=== PATIENT | female | born 1950 | race Caucasian/White ===

== ENCOUNTER → 2017-10-22 | Outpatient (CLI) | payer MEDICARE, OTHER ==
[2017-10-22 16:10] LABS: PLATELET COUNT, AUTOMATED 300 K/uL (150-450)
--- NOTE | 2017-10-22 16:18 | EKG ---
FACILITY: [facility] - [place], [place] PATIENT NAME: ALONDRA BRADLEY : [id number] MR: [id number] V: [id number] EXAM DATE: ORDERING PHYSICIAN: SEDA LINDSAY TECHNOLOGIST: LAW Test Reason : HEART PALPITATIONS Blood Pressure : / mmHG Vent. Rate : 057 BPM Atrial Rate : 057 BPM P-R Int : 142 ms QRS Dur : 086 ms QT Int : 440 ms P-R-T Axes : 061 012 046 degrees QTc Int : 428 ms Sinus bradycardia Otherwise normal ECG No previous ECGs available Referred By: NEFTALI Confirmed By:
== END ==
LOC: LAB 15:28
PROVIDERS: ATTEND Nurse Practitioner Primary Care
DX: R00.2 Palpitations (principal)
CPT/HCPCS: 36415; 82040; 82247; 82310; 82374; 82435; 82565; 82947; 84075; 84132; 84155; 84295; 84443; 84450; 84460; 84520; 85025

== ENCOUNTER 2018-07-30 21:09 | Emergency (ER) | payer MEDICARE, OTHER ==
--- NOTE | 2018-07-30 21:12 | ER Report ---
History and Physical Time Seen By MD: 21:11 HPI/ROS CHIEF COMPLAINT: Chest tightness, palpitations HISTORY OF PRESENT ILLNESS: 68-year-old female presents ambulatory to the ER complaining of chest tightness and palpitations. She notes a paresthesia sensation to the side of her neck which spread to her shoulders. She notes no diaphoresis, nausea or shortness of breath with her symptoms. Patient began to have palpitations and tachycardia. Patient denies recent illness or leg swelling. Patient denies other past medical problems. She does have a history of a primary care visit that suggested she had similar episodes which were thought related to anxiety. Patient notes she had 3 episodes throughout the day. The last one the worst only lasting a few minutes. They have all resolved spontaneously. REVIEW OF SYSTEMS: Respiratory: No cough, no dyspnea. Cardiovascular: As above Gastrointestinal: No vomiting, no abdominal pain. Musculoskeletal: No back pain. Allergies: Coded Allergies: Penicillins (Verified Allergy, Mild, as a baby almost , 05/20/17) Sulfa (Sulfonamide Antibiotics) (Verified Allergy, Mild, abd cramping, 05/20/17) Home Meds No Active Prescriptions or Reported Meds Past Medical/Surgical History Past Medical History Gastrointestinal: Reports hx of: GERD Past Surgical History Gynecologic: Reports hx of: tubal ligation Reviewed Nurses Notes: Yes Old Medical Records Reviewed: Yes Constitutional Vital Sign - Last 24 Hours 07/30/18 07/30/18 07/30/18 07/30/18 21:13 21:14 21:30 21:39 Temp 98.4 Pulse 73 70 Resp 18 10 B/P (MAP) 154/77 154/77 (102) 157/77 (103) Pulse Ox 95 95 O2 Delivery Room Air 07/30/18 07/30/18 07/30/18 22:00 22:05 22:30 Pulse 69 Resp 13 B/P (MAP) 142/73 (96) 125/75 (92) Pulse Ox 92 Physical Exam General Appearance: The patient is alert, has no immediate need for airway protection and no current signs of toxicity. Vital signs stable, afebrile, pulse ox normal HEENT: Pupils equal and round no injection. Oropharynx without redness or exudate, mucous. Membranes are moist Respiratory: Chest is non tender, lungs are clear to auscultation. No chest wall tenderness Cardiac: regular rate and rhythm, no murmur Gastrointestinal: Abdomen is soft and non tender, no masses, bowel sounds normal. Musculoskeletal: Neck: Neck is supple and non tender. Extremities have full range of motion and are non tender. Skin: No rashes or lesions. DIFFERENTIAL DIAGNOSIS: After history and physical exam differential diagnosis was considered for chest pain including but not limited to myocardial ischemia, pericarditis pulmonary embolus, chest wall pain, pleural inflammation and pulmo nary infectious causes. Medical Decision Making Data Points Result Diagram: 07/30/18211907/30/182119 Laboratory Hematology Test 07/30/18 21:20 07/30/18 21:50 Red Blood Count 4.37 M/uL (4.17-5.56) Mean Corpuscular Volume 93.0 fL (80.0-96.0) Mean Corpuscular Hemoglobin 31.5 pg (26.0-33.0) Mean Corpuscular Hemoglobin Concent 33.8 g/dL (32.0-36.0) Red Cell Distribution Width 12.7 % (11.5-14.5) Mean Platelet Volume 7.3 fL (7.2-11.1) Neutrophils (%) (Auto) 48.5 % (39.4-72.5) Lymphocytes (%) (Auto) 38.1 % (17.6-49.6) Monocytes (%) (Auto) 10.1 % (4.1-12.4) Eosinophils (%) (Auto) 2.5 % (0.4-6.7) Basophils (%) (Auto) 0.8 % (0.3-1.4) Nucleated RBC Relative Count (auto) 0.0 /100WBC Neutrophils # (Auto) 4.3 K/uL (2.0-7.4) Lymphocytes # (Auto) 3.4 K/uL (1.3-3.6) Monocytes # (Auto) 0.9 K/uL (0.3-1.0) Eosinophils # (Auto) 0.2 K/uL (0.0-0.5) Basophils # (Auto) 0.1 K/uL (0.0-0.1) Nucleated RBC Absolute Count (auto) 0.00 K/uL Sodium Level 136 mmol/L (137-145) Potassium Level 3.4 mmol/L (3.5-5.0) Chloride Level 102 mmol/L (98-107) Carbon Dioxide Level 26 mmol/L (22-31) Blood Urea Nitrogen 23 mg/dl (7-18) Creatinine 1.20 mg/dl (0.52-1.04) Glomerular Filtration Rate Calc 44.9 Random Glucose 93 mg/dl (75-110) Calcium Level 9.5 mg/dl (8.4-10.2) Total Bilirubin 0.1 mg/dl (0.2-1.3) Aspartate Amino Transf (AST/SGOT) 33 U/L (0-35) Alanine Aminotransferase (ALT/SGPT) 27 U/L (0-56) Alkaline Phosphatase 90 U/L (0-126) Troponin I < 0.012 ng/ml B-Type Natriuretic Peptide 8 pg/ml (0-100) Total Protein 8.2 g/dl (6.3-8.2) Albumin 5.0 g/dl (3.5-5.0) Amylase Level 72 U/L (0-110) Lipase 226 U/L (23-300) Urine Color Straw Urine Clarity Clear Urine pH 6.0 pH (4.8-9.5) Urine Specific [place] 1.009 Urine Protein Negative mg/dL (NEGATIVE) Urine Glucose (UA) Negative mg/dL (NEGATIVE) Urine Ketones Negative mg/dL (NEGATIVE) Urine Blood Negative (NEGATIVE) Urine Nitrite Negative (NEGATIVE) Urine Bilirubin Negative (NEGATIVE) Urine Urobilinogen Negative mg/dL (0.2-1.9) Urine Leukocyte Esterase Negative (NEGATIVE) Urine RBC 1 /HPF (0-2/HPF) Urine WBC 1 /HPF (0-5/HPF) Urine Squamous Epithelial Cells None /LPF (</=FEW) Urine Bacteria Few /HPF (NONE-FEW) Urine Mucus None /HPF (NONE-FEW) Chemistry Test 07/30/18 21:20 07/30/18 21:50 White Blood Count 8.9 k/uL (4.5-11.0) Red Blood Count 4.37 M/uL (4.17-5.56) Hemoglobin 13.7 g/dL (12.0-16.0) Hematocrit 40.6 % (34.0-47.0) Mean Corpuscular Volume 93.0 fL (80.0-96.0) Mean Corpuscular Hemoglobin 31.5 pg (26.0-33.0) Mean Corpuscular Hemoglobin Concent 33.8 g/dL (32.0-36.0) Red Cell Distribution Width 12.7 % (11.5-14.5) Platelet Count 301 K/uL (150-450) Mean Platelet Volume 7.3 fL (7.2-11.1) Neutrophils (%) (Auto) 48.5 % (39.4-72.5) Lymphocytes (%) (Auto) 38.1 % (17.6-49.6) Monocytes (%) (Auto) 10.1 % (4.1-12.4) Eosinophils (%) (Auto) 2.5 % (0.4-6.7) Basophils (%) (Auto) 0.8 % (0.3-1.4) Nucleated RBC Relative Count (auto) 0.0 /100WBC Neutrophils # (Auto) 4.3 K/uL (2.0-7.4) Lymphocytes # (Auto) 3.4 K/uL (1.3-3.6) Monocytes # (Auto) 0.9 K/uL (0.3-1.0) Eosinophils # (Auto) 0.2 K/uL (0.0-0.5) Basophils # (Auto) 0.1 K/uL (0.0-0.1) Nucleated RBC Absolute Count (auto) 0.00 K/uL Glomerular Filtration Rate Calc 44.9 Calcium Level 9.5 mg/dl (8.4-10.2) Total Bilirubin 0.1 mg/dl (0.2-1.3) Aspartate Amino Transf (AST/SGOT) 33 U/L (0-35) Alanine Aminotransferase (ALT/SGPT) 27 U/L (0-56) Alkaline Phosphatase 90 U/L (0-126) Troponin I < 0.012 ng/ml B-Type Natriuretic Peptide 8 pg/ml (0-100) Total Protein 8.2 g/dl (6.3-8.2) Albumin 5.0 g/dl (3.5-5.0) Amylase Level 72 U/L (0-110) Lipase 226 U/L (23-300) Urine Color Straw Urine Clarity Clear Urine pH 6.0 pH (4.8-9.5) Urine Specific [place] 1.009 Urine Protein Negative mg/dL (NEGATIVE) Urine Glucose (UA) Negative mg/dL (NEGATIVE) Urine Ketones Negative mg/dL (NEGATIVE) Urine Blood Negative (NEGATIVE) Urine Nitrite Negative (NEGATIVE) Urine Bilirubin Negative (NEGATIVE) Urine Urobilinogen Negative mg/dL (0.2-1.9) Urine Leukocyte Esterase Negative (NEGATIVE) Urine RBC 1 /HPF (0-2/HPF) Urine WBC 1 /HPF (0-5/HPF) Urine Squamous Epithelial Cells None /LPF (</=FEW) Urine Bacteria Few /HPF (NONE-FEW) Urine Mucus None /HPF (NONE-FEW) Urinalysis Test 07/30/18 21:50 Urine Color Straw Urine Clarity Clear Urine pH 6.0 pH (4.8-9.5) Urine Specific [place] 1.009 Urine Protein Negative mg/dL (NEGATIVE) Urine Glucose (UA) Negative mg/dL (NEGATIVE) Urine Ketones Negative mg/dL (NEGATIVE) Urine Blood Negative (NEGATIVE) Urine Nitrite Negative (NEGATIVE) Urine Bilirubin Negative (NEGATIVE) Urine Urobilinogen Negative mg/dL (0.2-1.9) Urine Leukocyte Esterase Negative (NEGATIVE) Urine RBC 1 /HPF (0-2/HPF) Urine WBC 1 /HPF (0-5/HPF) Urine Squamous Epithelial Cells None /LPF (</=FEW) Urine Bacteria Few /HPF (NONE-FEW) Urine Mucus None /HPF (NONE-FEW) EKG/Imaging EKG Interpretation 12 lead EK Rhythm: normal sinus rhythm [place]: normal QRS: normal ST segments: normal, comparison to previous EKG dated 10/22/17, no significant change, there is some nonspecific ST changes in some of the leads V3 and V4. That I suspect artifact lead placement Imaging X-ray: Single view portable chest x-ray was obtained. I viewed the images myself on the PACS system. My interpretation of the images is: No infiltrate, no effusion, normal mediastinum. The radiologist interpretation had no clinically significant variation from this interpretation. ED Course/Re-evaluation Clinical Indication for ER IV: IV Access ED Course Patient was admitted to an examination room. H&P was done. The differential diagnosis was considered. On clinical examination. Patient's symptoms have resolved spontaneously. She's had 3 episodes throughout the day of palpitations and paresthesia on her neck and arms and shoulders. She does have history of anxiety. Her EKG is unremarkable compared to previous EKG performed by primary care. Diagnostic studies are all unremarkable except for patient shows mild sig ns of dehydration with elevated BUN/creatinine. It is different from her previous laboratory studies. Patient states she drank over 40 ounces of fluid today. Her potassium and sodium are only slightly low. She is advised to follow-up with her primary care for recheck. Decision to Disposition Date: Jul 30, 2018 Decision to Disposition Time: 22:30 Depart Departure Latest Vital Signs Vital Signs Date Time Temp Pulse Resp B/P (MAP) Pulse Ox O2 Delivery O2 Flow Rate FiO2 07/30/18 22:30 125/75 (92) 07/30/18 22:05 69 13 92 07/30/18 21:13 98.4 Room Air Impression: Primary Impression: Mild dehydration Additional Impressions: Hypokalemia Palpitations Condition: Improved Disposition: HOME OR SELF-CARE Referrals: YASMIN MACK MD (PCP) New Scripts No Active Prescriptions or Reported Meds Patient Instructions: Dehydration (ED), Hypokalemia (ED) Additional Instructions: Follow-up with your primary care late next week for recheck and follow-up Problem Qualifiers ORI RAINES DO Jul 30, 2018 21:12
[2018-07-30 21:30] LABS: PLATELET COUNT, AUTOMATED 301 K/uL (150-450)
--- NOTE | 2018-07-30 22:02 | RADIOLOGY IMAGING REPORT ---
FACILITY: [facility] - [place]IENT NAME: Lucia Win : 1950 MR: [id number] V: [id number] EXAM DATE: ORDERING PHYSICIAN: ORI RAINES TECHNOLOGIST: Location: [facility] Patient: Lucia Win : 1950 Visit/Account:[id number] Date of Sevice: 07/30/2018 AP CHEST 07/30/2018 9:20 PM. INDICATION: Chest Pain COMPARISON: None. FINDINGS: Lungs are well-expanded. There is no consolidation. No pleural effusion or pneumothorax. Heart size i s normal. Mild aortic calcifications. IMPRESSION: No acute abnormality. Report Dictated By: Mk Walker MD at 07/30/2018 9:57 PM Report E-Signed By: Mk Walker MD at 07/30/2018 9:58 PM WSN:[id number]
[2018-07-30 22:30] VITALS: BP 125/75
--- NOTE | 2018-07-31 01:07 | EKG ---
FACILITY: [facility] PATIENT NAME: ALONDRA BRADLEY : [id number] MR: [id number] V: [id number] EXAM DATE: ORDERING PHYSICIAN: ORI RAINES TECHNOLOGIST: PONCHO Vides Reason : PALPATATION Blood Pressure : / mmHG Vent. Rate : 072 BPM Atrial Rate : 072 BPM P-R Int : 142 ms QRS Dur : 086 ms QT Int : 394 ms P-R-T Axes : 065 -01 064 degrees QTc Int : 431 ms Normal sinus rhythm No ST-T abnormalities When compared with ECG of 22-OCT-2017 14:36, T wave inversion now evident in Anterior leads Confirmed by JEAN PAUL LEWIS ([id number]) on 07/31/2018 6:50:34 AM Referred By: Confirmed By:JEAN PAUL LEWIS
== END 2018-07-30 22:39 | disposition home or self-care (01) ==
LOC: ER 21:13
DX: E86.0 Dehydration (principal); E87.6 Hypokalemia; R00.2 Palpitations
CPT/HCPCS: 71045; 81001; 82040; 82150; 82247; 82310; 82374; 82435; 82565; 82947; 83690; 83880; 84075; 84132; 84155; 84295; 84450; 84460; 84484; 84520; 85025; 93005; 99284